=== PATIENT | female | born 1930 | race Two or more races ===

== ENCOUNTER 2018-10-08 18:55 | Emergency (ER) | payer OTHER ==
[~2018-10-08] VITALS: Ht 144.8 cm; Wt 72.6 kg
[2018-10-08] MEDS ORDERED: VERTICALM25 MG PO (23:07)
[2018-10-08] MEDS ORDERED: ULTRACET PO (23:07)
== END 2018-10-08 23:01 | disposition home or self-care (01) ==
LOC: ER 18:55
DX: S42.221A 2-part displaced fracture of surgical neck of right humerus, initial encounter for closed fracture (principal); S20.211A Contusion of right front wall of thorax, initial encounter; W18.09XA Striking against other object with subsequent fall, initial encounter; Y93.89 Activity, other specified; Y92.89 Other specified places as the place of occurrence of the external cause; Y99.8 Other external cause status

== ENCOUNTER 2020-04-14 19:21 | Emergency (ER) | payer OTHER ==
[~2020-04-14] VITALS: Ht 147.3 cm; Wt 54.4 kg
[~2020-04-14 19:21] MED LIST: ULTRACET PO; VERTICALM25 MG PO
[2020-04-14] MEDS ORDERED: TRADJENTA5 MG (19:33)
[2020-04-14] MEDS ORDERED: GLIMEPIRIDE4 MG (19:33)
[2020-04-14] MEDS ORDERED: HORIZANT300 MG (19:36)
[2020-04-14] MEDS ORDERED: LIPITOR40 M1 (19:36)
[2020-04-14] MEDS ORDERED: COZAAR50 MG (19:37)
== END 2020-04-14 21:22 | disposition home or self-care (01) ==
LOC: ER 19:21
DX: S51.021A Laceration with foreign body of right elbow, initial encounter (principal); S80.01XA Contusion of right knee, initial encounter; M12.521 Traumatic arthropathy, right elbow; M12.561 Traumatic arthropathy, right knee; W01.198A Fall on same level from slipping, tripping and stumbling with subsequent striking against other object, initial encounter; Y93.89 Activity, other specified; Y92.012 Bathroom of single-family (private) house as the place of occurrence of the external cause; Y99.8 Other external cause status

== ENCOUNTER 2020-04-20 12:42 | Emergency (ER) | payer OTHER ==
[~2020-04-20] VITALS: Ht 149.9 cm; Wt 57.2 kg
[~2020-04-20 12:42] MED LIST changes: +COZAAR50 MG; +GLIMEPIRIDE4 MG; +HORIZANT300 MG; +LIPITOR40 M1; +TRADJENTA5 MG
== END 2020-04-20 15:22 | disposition home or self-care (01) ==
LOC: ER 12:42
DX: Z48.02 Encounter for removal of sutures (principal)

== ENCOUNTER 2020-08-03 10:47 | Emergency (ER) | payer OTHER ==
[~2020-08-03] VITALS: Ht 152.4 cm; Wt 58.1 kg
== END 2020-08-03 16:47 | disposition home or self-care (01) ==
LOC: ER 10:47
DX: S05.12XA Contusion of eyeball and orbital tissues, left eye, initial encounter (principal); W18.39XA Other fall on same level, initial encounter; Y93.89 Activity, other specified; Y92.098 Other place in other non-institutional residence as the place of occurrence of the external cause; Y99.8 Other external cause status